=== PATIENT | male | born 1985 | race Caucasian/White ===

== ENCOUNTER 2017-05-08 12:12 | Emergency (ER) | payer MEDICAID ==
--- NOTE | ~2017-05-08 | ER ---
PATIENT'S NAME: AGA FERNANDES [facility] AGE: 32 Y [address] ROOM: [place], [place] [address] LOCATION: [facility] ADMIT DATE: 05/08/2017 ER/Outpatient Report DISCHARGE DATE: 05/08/2017 FAMILY PHYSICIAN: Physician, Unknown ATTENDING PHYSICIAN: Logan Norris TIME SEEN: 13:15. CHIEF COMPLAINT: Low back pain. HISTORY OF PRESENT ILLNESS: The patient is a 32-year-old male. The patient states he was in a swimming pool. He had a female who weighed approximately 100 pounds on his shoulder, who fell backwards causing severe pain to his low back. The patient denied any numbness or tingling to his extremities. He did state he heard a pop. The patient denies any previous back issues. ALLERGIES: NONE. HOME MEDICATIONS: None. PAST MEDICAL HISTORY: He has no chronic diseases. SURGERIES: None. SOCIAL HISTORY: He has a history of tobacco abuse. He has used marijuana in the past. REVIEW OF SYSTEMS: CONSTITUTIONAL: General health was good. HEAD AND ENT: No complaints of a headache or neck pain. RESPIRATORY: No shortness of breath or cough. MUSCULOSKELETAL/BACK: Includes pain in left lower lumbar. NEUROLOGICAL: No numbness or tingling to his lower extremities. No radicular pain. PHYSICAL EXAMINATION: VITAL SIGNS: Blood pressure was 160/82, his temperature was 98.5, his PATIENT'S NAME: AGA FERNANDES [facility] AGE: 32 Y [address] ROOM: [place], [place] [address] LOCATION: [facility] ADMIT DATE: 05/08/2017 ER/Outpatient Report DISCHARGE DATE: 05/08/2017 FAMILY PHYSICIAN: Physician, Unknown ATTENDING PHYSICIAN: Logan Norris respiratory rate was 16, pulse was 90, and O2 sats were 97%. GENERAL APPEARANCE: He appeared to be in obvious pain. He felt more comfortable lying on his stomach. HEAD AND ENT: Unremarkable. LUNGS: Clear. BACK: Tenderness to palpation mostly laterally lumbar. No real central spine tenderness. NEUROLOGICAL: He had good sensation to light touch to his lower extremities. DIAGNOSTIC STUDIES: Imaging done of CT lumbar showed no acute bony injuries. ASSESSMENT: Acute lumbar strain. PLAN: He was given Toradol 60 IM here in the Emergency Room. He was prescribed Naprosyn 500 b.i.d. and Flexeril 10 mg t.i.d. Limit activity today. Ice or heat. Follow up if the symptoms do not improve by Tuesday. ASHLEY MONTES DE OCA FOR MD INDU NAIK/saran /[id number] d: 05/08/172124 t: 05/23/17 0700, OUTPATIENT REPORT
== END 2017-05-08 14:20 | disposition disaster alternative care site (69) ==
LOC: GACC 12:12
DX: S39.012A Strain of muscle, fascia and tendon of lower back, initial encounter (principal); Z87.891 Personal history of nicotine dependence; X50.1XXA Overexertion from prolonged static or awkward postures, initial encounter; Y93.89 Activity, other specified; Y92.34 Swimming pool (public) as the place of occurrence of the external cause
CPT/HCPCS: J1885